=== PATIENT | female | born 1985 | race Caucasian/White ===

== ENCOUNTER → 2020-08-11 | Day surgery (SDC) | payer BC ==
[~2020-08-11] MED LIST: EMPA25TA PO; INSU100C4 SQ; INSU100V37 SQ; IPRATRPIUM/ALBUTEROL 0.5/2.5MG 3 ML NEBU. NEB PRN; IV RINGERS SOLUTION,LACTATED 1,000 ML IV SCH; LIDOCAINE 1% PF 30 ML VIAL. ONE; LIDOCAINE 1%/EPI 1:100,000 20 ML VIAL. ONE; METO25TA4 PO; METO50TA29 PO; MIDAZOLAM HCL PF 2 MG/2 ML VIAL. IV ONE; NEOMY/BACITR/POLYMYXIN OINT PACKET. TP ONE; ONDANSETRON PF 4 MG/2 ML VIAL. IV PRN; TRAM100T2 PO
--- NOTE | 2020-08-11 09:54 | PDOC4 ---
Operative Report DATE August [id number] at 953 Preop Diagnosis Right thigh mass Post-op Diagnosis Same Operation Performed Excision of right thigh mass Procedure of excision of right thigh mass was explained to the patient detail risk-benefit were also discussed including bleeding infection alternatives to this procedure also discussed with patient who seemed to understand and gave both verbal and written consent to have procedure performed. Patient was taken to the minors room placed in the supine position area was prepped and draped usual sterile fashion with ChloraPrep. Area around the mass was injected with 1% lidocaine with epinephrine an elliptical incision was made with 15 blade scalpel and the mass was excised. Mass size 1 cm with a 1 cm margin. Wound was then closed in a single layer 4-0 subcuticular Monocryl Mastisol Steri-Strips and island dressings were applied. Patient tolerated procedure well was d ischarged home in stable condition all sponge instrument needle counts listed as correct estimated blood loss 5 mL Surgeon Matheus ANESTHESIA PROPOSED: LOCAL Blood Loss 5 mL Specimen Right thigh mass Complications None FEI WU MD Aug 11, 2020 09:54
--- NOTE | 2020-08-11 09:57 | DISCH ---
DISCHARGE INSTRUCTIONS-DC Condition on Discharge Condition on Discharge: Stable Activity after Discharge Activity Instructions for Disc: No restrictions Diet after Discharge Diet after Discharge: Regular Wound/Incision Care Other wound/incision instructi: Nadja shower in 24 hours Contacting the DRDavid after DC Call your doctor for: If your condition worsens Follow-Up Follow up with: Dr. Wu in 2 weeks FEI WU MD Aug 11, 2020 09:57
[2020-08-11 09:58] VITALS: BP 143/79
--- NOTE | 2020-08-16 17:07 | PATHOLOGY ---
[facility] Accession Number: [id number] . 01 Material submitted: . thigh - RIGHT THIGH MASS. Modifiers: right . 01 Clinical history: . EXCISION OF RIGHT THIGH MASS . 02 Diagnosis: Skin and subcutaneous tissue, right thigh mass excision: - Granulation tissue with acute and chronic inflammation and foreign body giant cell reaction. See comment. LBQ 08/16/2020 1638 Local . 02 Comment: The findings may be compatible with a ruptured inflamed epidermal inclusion cyst. There is no evidence of malignancy. (JPM/db; 08/16/2020) . 02 Electronically signed: . Lul Corbin MD, Pathologist NPI- [id number] . 01 Gross description: . Received in formalin labeled "Grecia Laws, right thigh mass" is an unoriented irregular, lobular portion of fibroadipose tissue measuring 1.2 x 1.1 x 0.4 cm with attached skin measuring 1.1 x 0.3 cm. The skin surface displays no discrete lesion. The surgical resection margin is inked black the specimen is bisected to reveal a lobular, el-yellow cut surface. The specimen is entirely submitted in cassette A1.([facility]; 08/13/2020) GZA/GZA 08/13/2020 1249 Local . 02 Pathologist provided ICD-10: L92.8, L08.9 . 02 CPT . 804730 Specimen Comment: A courtesy copy of this report has been sent to [phone], [phone] Specimen Comment: [id number] Specimen Comment: Report sent to / DR MASTERS Performed at: [address], [place] [id number] MD Obi Stewart MD Phone: [phone] Performed at: 02 [facility] [address], [place] [id number] MD Lul Corbin MD Phone: [phone]
== END | disposition home or self-care (01) ==
LOC: SURG 09:04
PROVIDERS: ATTEND Surgery
DX: R22.41 Localized swelling, mass and lump, right lower limb (principal); L72.0 Epidermal cyst; L92.8 Other granulomatous disorders of the skin and subcutaneous tissue; L08.9 Local infection of the skin and subcutaneous tissue, unspecified; E11.9 Type 2 diabetes mellitus without complications; G43.909 Migraine, unspecified, not intractable, without status migrainosus; I10 Essential (primary) hypertension; Z79.899 Other long term (current) drug therapy; Z98.890 Other specified postprocedural states; Z88.8 Allergy status to other drugs, medicaments and biological substances; Z88.0 Allergy status to penicillin; Z88.2 Allergy status to sulfonamides; Z79.4 Long term (current) use of insulin; Z91.041 Radiographic dye allergy status
CPT/HCPCS: 88305